=== PATIENT | female | born 1940 | race Caucasian/White ===

== ENCOUNTER 2017-06-05 05:23 | Day surgery (SDC) | payer OTHER, MEDICARE ==
[~2017-06-05] VITALS: Ht 162.6 cm; Wt 53.8 kg
--- NOTE | ~2017-06-05 | O ---
[facility] [place] [address] OPERATIVE REPORT Name: WILBER JUDD Room #: DEP [facility] M.R.#: [id number] Admission: 06/05/17 Attend Phys: Aidee Rolle, Discharge: 06/05/17 Date of : 42 Report #: [id number] THIS REPORT FOR: //name// CC: Guille Rolle DATE OF SERVICE: 06/05/2017 PREOPERATIVE DIAGNOSES: Right long finger, possible osteomyelitis, possible squamous cell carcinoma. POSTOPERATIVE DIAGNOSES: Right long finger, possible osteomyelitis, possible squamous cell carcinoma. PROCEDURE PERFORMED: Right long finger debridement of skin, subcutaneous tissue and bone. SURGEON: Aidee Rolle MD ANESTHESIA: General mask anesthesia. ESTIMATED BLOOD LOSS: Approximately 1 mL. TOURNIQUET TIME: Approximately 16 minutes. COMPLICATIONS: None. CONDITION: Stable. DISPOSITION: To recovery room. 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 The wound continued to not heal and it showed signs of osteomyelitis based on MRI, as well as physical examination. The risks, benefits, alternatives, complications were discussed including but were not limited to infection, inability to resolve the infection necessitating more surgery, damage to blood vessels or nerves, wound healing problems and stiffness and informed consent was obtained. The correct extremity was identified and labeled myself. After verbal confirmation of the patient as well as visual confirmation, signed informed consent was obtained. DESCRIPTION OF PROCEDURE: The patient was brought back to the operating room and placed on the operating room table in supine position. She received antibiotics only after the tourniquet was deflated and cultures were obtained. The right upper extremity was sterilely prepped and draped in usual fashion. A final timeout was taken to verify the correct patient, operative procedure, [address] [address] OPERATIVE REPORT Name: WILBER JUDD LINDSEY Room #: DEP [facility] M.R.#: [id number] Admission: 06/05/17 Attend Phys: Aidee Rolle, Discharge: 06/05/17 Date of : 42 Report #: [id number] operative site, all concurred. An elliptical incision was made over the wound on the radial aspect of the long finger at the distal aspect of the P1. The skin was excised. Dissection was carried down through subcutaneous tissue with tenotomy scissors. A weak cortical area was noted and a curette was placed into the distal aspect of the proximal phalanx. The bone was debrided adequately. The bone appeared to be somewhat soft and this area was debrided to nice, firm, appropriate bone. The area was then thoroughly irrigated with an angiocatheter using 1 mL of antibiotics saline with 14-gauge angiocatheter. Once this was done to satisfaction, the wound was then closed with 4-0 nylon suture. A digital nerve block was done at the base with approximately 3 mL of 0.25% Marcaine. She was placed in a bulky compressive dressing. All fingers were pink with brisk capillary refill at the conclusion of the case. After deflation of the tourniquet, all sponge and needle counts were correct. Of note, the swab and tissue was sent to culture and skin was sent to pathology as well as bone was sent to pathology. <ELECTRONICALLY SIGNED> By: Aidee Rolle MD 06/28/17 1502 [id number] Aidee Rolle MD /nt
--- NOTE | ~2017-06-05 | S ---
[facility] [address] [place] [address] SURGICAL PATH RPT PROCEDURE Name: WILBER JUDD Room #: DEP [facility] M.R.#: [id number] Admission: 06/05/17 Date of : 42 Discharge: 06/05/17 Report #: [id number] Path Case #: [id number] PATHOLOGY REPORT COLLECTION DATE: 06/05/2017 RECEIVED DATE: 06/05/2017 SUBMITTING PHYS: Dr. Aidee Rolle OTHER PHYS: Dr. Guille Cornejo ADDENDUM REPORT (Order Date: 06/27/2017 12:53) ADDENDUM COMMENT: The case is discussed with Dr. Aidee Rolle. 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 Clinical correlation is required. The final diagnosis remains unchanged. (CLW:pit; 06/27/2017) Professional services performed by [facility] at [facility] [address], [place] [address] Technical services performed by [facility] at [address] [place] [address], [address] [place] [address]. ELECTRONICALLY SIGNED BY: Mey Loving M.D. DATE/TIME:06/27/2017 16:20 SPECIMEN(S) RECEIVED: A.Skin, sub-q, tissue and bone right long finger-dx * * * * * * * * * * * * FINAL DIAGNOSIS: "Skin, sub-q, tissue and bone right long finger", debridement: - Skin and subcutaneous tissue with acute and chronic inflammation, granulation tissue and pseudoepitheliomatous hyperplasia. - Decalcified bone and periosteum with focal acute and chronic inflammation and reactive changes. (CLW:pit; 06/06/2017) PATHOLOGIST: Mey Loving M.D. REPORT ELECTRONICALLY SIGNED BY: Mey Loving M.D. DATE/TIME: 06/06/2017 19:51 * * * * * * * * * * * * GROSS PATHOLOGY: [address] [address] SURGICAL PATH RPT PROCEDURE Name: WILBER JUDD Room #: [facility] M..#: [id number] Admission: 06/05/17 Date of : 42 Discharge: 06/05/17 Report #: [id number] Path Case #: [id number] Received in formalin labeled "Wilber Judd and skin, subcutaneous tissue, bone from right long finger," are multiple fragments of skin, soft tissue and bone. The skin ellipse is a disrupted and measure 1.8 x 0.4 x 0.1 cm (inked blue) and serially sectioned into 5 pieces. Also within the container is an irregular fragment of white soft tissue 0.5 x 0.2 x 0.1 cm (inked blue) and several white bone fragments the aggregate measuring 0.3 x 0.1 x 0.1 cm. The specimen is entirely submitted as follows: A1 ellipse, midportion A2 ellipse, tips A3 additional soft tissue A4 bone fragments after decalcification (SWS; 06/05/2017) CLINICAL HISTORY: Squamous cell carcinoma and osteomyelitis INITIAL CPT CODE(S): A; 35035, 70960(2) Professional services performed by [facility] at [facility] [address] [place] [address] Technical services performed by [facility] at [address] [place] [address], [facility] [address] [place] [address]. [facility] [address] [place] [address] PHONE: [phone] DIRECTOR: Dl Heck M.D. * * * END OF REPORT * * *
[2017-06-05 07:42] VITALS: BP 119/59
[2017-06-05] MEDS ORDERED: ASPIR 8181 MG PO ×2 (08:18)
[2017-06-05] MEDS ORDERED: LOPRESSOR50 PO ×2 (08:19)
[2017-06-05] MEDS ORDERED: LIPITOR 20 MG T20 M1 PO ×2 (08:19)
[2017-06-05] MEDS ORDERED: HYDROXYCHLOROQ200 M1 PO ×2 (08:20)
[2017-06-05] MEDS ORDERED: KEFLEX500 M1 PO ×2 (08:22)
[2017-06-05] MEDS ORDERED: VITAMIN D-32000 UNIT PO ×2 (08:22)
[2017-06-05 10:42] VITALS: BP 119/59
[2017-06-06] MEDS ORDERED: INVANZ 1GM/NS 101 GM IV (15:02)
[2017-07-18] MEDS ORDERED: CEFDINIR300 MG PO (10:49)
== END 2017-06-05 11:40 | disposition home or self-care (01) ==
LOC: EDSTATUS 05:23 → OR 05:23 → TBA 05:23 → OR 11:40
DX: M86.8X4 Other osteomyelitis, hand (principal); T81.89XA Other complications of procedures, not elsewhere classified, initial encounter; Z45.2 Encounter for adjustment and management of vascular access device; I10 Essential (primary) hypertension; Z90.710 Acquired absence of both cervix and uterus; Z98.890 Other specified postprocedural states; Z79.82 Long term (current) use of aspirin; Z79.899 Other long term (current) drug therapy
CPT/HCPCS: 50010; 50101; 50386; 56526; 57006; 57091; 62110; 62900; 70005

== ENCOUNTER → 2017-06-06 | Outpatient (CLI) | payer OTHER, MEDICARE ==
[~2017-06-06] MED LIST: ASPIR 8181 MG PO; CEFDINIR300 MG PO; HYDROXYCHLOROQ200 M1 PO; INVANZ 1GM/NS 101 GM IV; KEFLEX500 M1 PO; LIPITOR 20 MG T20 M1 PO; LOPRESSOR50 PO; VITAMIN D-32000 UNIT PO
[2017-06-06 11:55] VITALS: BP 120/52
[2017-06-06 11:59] LABS: HEMATOCRIT 36.1 % (37.0-47.0); HEMOGLOBIN 12.4 gm/dL (12.0-15.0); MCH 34.1 pg (26.0-34.0); MCHC 34.3 g/dL (28.0-37.0); MCV 99.5 fL (80.0-100.0); RBC 3.62 mil/uL (4.20-5.00); RDW 12.6 % (10.5-14.5); WBC 5.1 thou/uL (4.0-11.0)
[2017-06-06 12:12] LABS: ALBUMIN 3.4 g/dL (3.4-5.0); CALCIUM 9.3 mg/dL (8.5-10.1); CREATININE 0.9 mg/dL (0.6-1.0); POTASSIUM 4.5 mmol/L (3.5-5.1); TOTAL BILIRUBIN 0.5 mg/dL (<0.1-1.0); TOTAL PROTEIN 6.4 g/dL (6.4-8.2)
[2017-06-06 12:15] VITALS: BP 120/52
== END ==
LOC: OPONC 06:25
PROVIDERS: Specialist
DX: M86.8X4 Other osteomyelitis, hand (principal)
CPT/HCPCS: 95000

== ENCOUNTER → 2017-06-08 | Outpatient (CLI) | payer OTHER, MEDICARE | LOC: OPONC 08:34 | DX: M86.8X4 Other osteomyelitis, hand (principal) | CPT/HCPCS: 95000 ==

== ENCOUNTER → 2017-06-11 | Outpatient (CLI) | payer OTHER, MEDICARE ==
[2017-06-11 12:13] VITALS: BP 123/52
== END ==
LOC: OPONC 00:21
DX: M86.8X4 Other osteomyelitis, hand (principal)
CPT/HCPCS: 95000

== ENCOUNTER → 2017-06-12 | Outpatient (CLI) | payer OTHER, MEDICARE ==
[2017-06-12 10:30] VITALS: BP 176/59
== END ==
LOC: OPONC 06:23
DX: M86.8X4 Other osteomyelitis, hand (principal)
CPT/HCPCS: 95000

== ENCOUNTER → 2017-06-13 | Outpatient (CLI) | payer OTHER, MEDICARE ==
[2017-06-13 10:29] VITALS: BP 115/32
[2017-06-13 10:51] LABS: HEMATOCRIT 36.2 % (37.0-47.0); HEMOGLOBIN 12.4 gm/dL (12.0-15.0); MCH 33.9 pg (26.0-34.0); MCHC 34.2 g/dL (28.0-37.0); RBC 3.65 mil/uL (4.20-5.00); RDW 12.4 % (10.5-14.5); WBC 4.7 thou/uL (4.0-11.0)
[2017-06-13 11:04] LABS: ALBUMIN 3.2 g/dL (3.4-5.0); CALCIUM 9.1 mg/dL (8.5-10.1); POTASSIUM 4.4 mmol/L (3.5-5.1); TOTAL BILIRUBIN 0.5 mg/dL (<0.1-1.0); TOTAL PROTEIN 6.2 g/dL (6.4-8.2)
== END ==
LOC: OPONC 00:59
PROVIDERS: Specialist
DX: M86.8X4 Other osteomyelitis, hand (principal)
CPT/HCPCS: 95000

== ENCOUNTER → 2017-06-14 | Outpatient (CLI) | payer OTHER, MEDICARE ==
[2017-06-14 10:41] VITALS: BP 132/31
== END ==
LOC: OPONC 01:00
DX: M86.8X4 Other osteomyelitis, hand (principal)
CPT/HCPCS: 95000

== ENCOUNTER → 2017-06-15 | Outpatient (CLI) | payer OTHER, MEDICARE | LOC: OPONC 01:10 | DX: M86.8X4 Other osteomyelitis, hand (principal) | CPT/HCPCS: 95000 ==

== ENCOUNTER → 2017-06-17 | Outpatient (CLI) | payer OTHER, MEDICARE | LOC: OPONC 00:14 | DX: M86.8X4 Other osteomyelitis, hand (principal) | CPT/HCPCS: 95000 ==

== ENCOUNTER → 2017-06-18 | Outpatient (CLI) | payer OTHER, MEDICARE ==
[2017-06-18 13:14] VITALS: BP 130/36
== END ==
LOC: OPONC 00:39
DX: M86.8X4 Other osteomyelitis, hand (principal)
CPT/HCPCS: 95000

== ENCOUNTER → 2017-06-19 | Outpatient (CLI) | payer OTHER, MEDICARE ==
[2017-06-19 10:27] VITALS: BP 130/40
== END ==
LOC: OPONC 07:05
DX: M86.8X4 Other osteomyelitis, hand (principal)
CPT/HCPCS: 95000

== ENCOUNTER → 2017-06-20 | Outpatient (CLI) | payer OTHER, MEDICARE ==
[2017-06-20 10:40] VITALS: BP 140/50
[2017-06-20 10:55] LABS: HEMATOCRIT 34.8 % (37.0-47.0); MCH 33.9 pg (26.0-34.0); MCHC 34.5 g/dL (28.0-37.0); MCV 98.4 fL (80.0-100.0); RBC 3.53 mil/uL (4.20-5.00); RDW 12.3 % (10.5-14.5); WBC 5.4 thou/uL (4.0-11.0)
[2017-06-20 11:08] LABS: ALBUMIN 3.5 g/dL (3.4-5.0); TOTAL BILIRUBIN 0.8 mg/dL (<0.1-1.0); TOTAL PROTEIN 6.3 g/dL (6.4-8.2)
== END ==
LOC: OPONC 00:58
PROVIDERS: Specialist
DX: M86.8X4 Other osteomyelitis, hand (principal)
CPT/HCPCS: 95000

== ENCOUNTER → 2017-06-21 | Outpatient (CLI) | payer OTHER, MEDICARE ==
[2017-06-21 10:10] VITALS: BP 141/37
== END ==
LOC: OPONC 00:41
DX: M86.8X4 Other osteomyelitis, hand (principal)
CPT/HCPCS: 95000

== ENCOUNTER → 2017-06-22 | Outpatient (CLI) | payer OTHER, MEDICARE ==
[2017-06-22 10:23] VITALS: BP 119/41
== END ==
LOC: OPONC 00:34
DX: M86.8X4 Other osteomyelitis, hand (principal)
CPT/HCPCS: 95000

== ENCOUNTER → 2017-06-23 | Outpatient (CLI) | payer OTHER, MEDICARE | LOC: OPONC 06:28 | DX: M86.8X4 Other osteomyelitis, hand (principal) | CPT/HCPCS: 95000 ==

== ENCOUNTER → 2017-06-24 | Outpatient (CLI) | payer OTHER, MEDICARE | LOC: OPONC 06:57 | DX: M86.8X4 Other osteomyelitis, hand (principal) | CPT/HCPCS: 95000 ==

== ENCOUNTER → 2017-06-25 | Outpatient (CLI) | payer OTHER, MEDICARE ==
[2017-06-25 10:10] VITALS: BP 132/46
== END ==
LOC: OPONC 03:01
DX: M86.8X4 Other osteomyelitis, hand (principal)
CPT/HCPCS: 95000

== ENCOUNTER → 2017-06-26 | Outpatient (CLI) | payer OTHER, MEDICARE ==
[2017-06-26 10:14] VITALS: BP 123/45
== END ==
LOC: OPONC 00:25
DX: M86.8X4 Other osteomyelitis, hand (principal)
CPT/HCPCS: 95000

== ENCOUNTER → 2017-06-27 | Outpatient (CLI) | payer OTHER, MEDICARE ==
[2017-06-27 10:10] VITALS: BP 154/59
[2017-06-27 10:36] LABS: HEMATOCRIT 34.6 % (37.0-47.0); HEMOGLOBIN 11.9 gm/dL (12.0-15.0); MCH 33.5 pg (26.0-34.0); MCHC 34.3 g/dL (28.0-37.0); MCV 97.8 fL (80.0-100.0); RBC 3.54 mil/uL (4.20-5.00); RDW 12.7 % (10.5-14.5); WBC 4.1 thou/uL (4.0-11.0)
[2017-06-27 10:49] LABS: ALBUMIN 3.4 g/dL (3.4-5.0); CREATININE 0.9 mg/dL (0.6-1.0); POTASSIUM 4.4 mmol/L (3.5-5.1); TOTAL BILIRUBIN 0.5 mg/dL (<0.1-1.0); TOTAL PROTEIN 6.3 g/dL (6.4-8.2)
== END ==
LOC: OPONC 00:33
PROVIDERS: Specialist
DX: M86.8X4 Other osteomyelitis, hand (principal)
CPT/HCPCS: 95000

== ENCOUNTER → 2017-06-28 | Outpatient (CLI) | payer OTHER, MEDICARE ==
[2017-06-28 10:10] VITALS: BP 134/58
== END ==
LOC: OPONC 01:31
DX: M86.8X4 Other osteomyelitis, hand (principal)
CPT/HCPCS: 95000

== ENCOUNTER → 2017-06-29 | Outpatient (CLI) | payer OTHER, MEDICARE ==
[2017-06-29 11:45] VITALS: BP 111/45
== END ==
LOC: OPONC 01:31
DX: M86.8X4 Other osteomyelitis, hand (principal)
CPT/HCPCS: 95000

== ENCOUNTER → 2017-06-30 | Outpatient (CLI) | payer OTHER, MEDICARE | LOC: OPONC 02:03 | DX: M86.8X4 Other osteomyelitis, hand (principal) | CPT/HCPCS: 95000 ==

== ENCOUNTER → 2017-07-02 | Outpatient (CLI) | payer OTHER, MEDICARE ==
[2017-07-02 11:00] VITALS: BP 115/46
== END ==
LOC: OPONC 00:24
DX: M86.8X4 Other osteomyelitis, hand (principal)
CPT/HCPCS: 95000

== ENCOUNTER → 2017-07-03 | Outpatient (CLI) | payer OTHER, MEDICARE ==
[2017-07-03 10:23] VITALS: BP 111/51
== END ==
LOC: OPONC 00:14
DX: M86.8X4 Other osteomyelitis, hand (principal)
CPT/HCPCS: 95000

== ENCOUNTER → 2017-07-04 | Outpatient (CLI) | payer OTHER, MEDICARE ==
[2017-07-04 10:15] VITALS: BP 133/56
[2017-07-04 10:46] LABS: HEMATOCRIT 34.9 % (37.0-47.0); HEMOGLOBIN 11.9 gm/dL (12.0-15.0); MCH 33.7 pg (26.0-34.0); MCHC 34.1 g/dL (28.0-37.0); MCV 98.8 fL (80.0-100.0); RBC 3.53 mil/uL (4.20-5.00); RDW 12.6 % (10.5-14.5); WBC 4.7 thou/uL (4.0-11.0)
[2017-07-04 10:58] LABS: ALBUMIN 3.4 g/dL (3.4-5.0); CALCIUM 8.9 mg/dL (8.5-10.1); POTASSIUM 4.6 mmol/L (3.5-5.1); TOTAL BILIRUBIN 0.4 mg/dL (<0.1-1.0); TOTAL PROTEIN 6.1 g/dL (6.4-8.2)
== END ==
LOC: OPONC 00:14
PROVIDERS: Specialist
DX: M86.8X4 Other osteomyelitis, hand (principal)
CPT/HCPCS: 95000

== ENCOUNTER → 2017-07-05 | Outpatient (CLI) | payer OTHER, MEDICARE ==
[2017-07-05 12:19] VITALS: BP 145/47
== END ==
LOC: OPONC 00:18
DX: M86.8X4 Other osteomyelitis, hand (principal)
CPT/HCPCS: 95000

== ENCOUNTER → 2017-07-06 | Outpatient (CLI) | payer OTHER, MEDICARE ==
[2017-07-06 10:15] VITALS: BP 121/55
== END ==
LOC: OPONC 00:18
DX: M86.8X4 Other osteomyelitis, hand (principal)
CPT/HCPCS: 95000

== ENCOUNTER → 2017-07-09 | Outpatient (CLI) | payer OTHER, MEDICARE ==
[2017-07-09 13:56] VITALS: BP 122/34
== END ==
LOC: OPONC 00:19
DX: M86.8X4 Other osteomyelitis, hand (principal)
CPT/HCPCS: 95000

== ENCOUNTER → 2017-07-10 | Outpatient (CLI) | payer OTHER, MEDICARE ==
[2017-07-10 10:15] VITALS: BP 150/44
== END ==
LOC: OPONC 00:42
DX: M86.8X4 Other osteomyelitis, hand (principal)
CPT/HCPCS: 95000

== ENCOUNTER → 2017-07-11 | Outpatient (CLI) | payer OTHER, MEDICARE ==
[2017-07-11 10:28] VITALS: BP 147/42
[2017-07-11 10:31] LABS: HEMATOCRIT 35.7 % (37.0-47.0); HEMOGLOBIN 12.3 gm/dL (12.0-15.0); MCH 33.8 pg (26.0-34.0); MCHC 34.5 g/dL (28.0-37.0); MCV 97.8 fL (80.0-100.0); RBC 3.65 mil/uL (4.20-5.00); RDW 12.3 % (10.5-14.5); WBC 3.7 thou/uL (4.0-11.0)
[2017-07-11 10:46] LABS: ALBUMIN 3.5 g/dL (3.4-5.0); CALCIUM 8.9 mg/dL (8.5-10.1); POTASSIUM 4.3 mmol/L (3.5-5.1); TOTAL BILIRUBIN 0.6 mg/dL (<0.1-1.0); TOTAL PROTEIN 6.2 g/dL (6.4-8.2)
== END ==
LOC: OPONC 02:04
PROVIDERS: Specialist
DX: M86.8X4 Other osteomyelitis, hand (principal)
CPT/HCPCS: 95000

== ENCOUNTER → 2017-07-12 | Outpatient (CLI) | payer OTHER, MEDICARE ==
[2017-07-12 10:30] VITALS: BP 142/43
== END ==
LOC: OPONC 00:24
DX: M86.8X4 Other osteomyelitis, hand (principal)
CPT/HCPCS: 95000

== ENCOUNTER → 2017-07-13 | Outpatient (CLI) | payer OTHER, MEDICARE ==
[2017-07-13 18:14] VITALS: BP 118/38
== END ==
LOC: OPONC 00:24
DX: M86.8X4 Other osteomyelitis, hand (principal)
CPT/HCPCS: 95000

== ENCOUNTER → 2017-07-14 | Outpatient (CLI) | payer OTHER, MEDICARE | LOC: OPONC 00:32 | DX: M86.8X4 Other osteomyelitis, hand (principal) | CPT/HCPCS: 95000 ==

== ENCOUNTER → 2017-07-15 | Outpatient (CLI) | payer OTHER, MEDICARE | LOC: OPONC 00:32 | DX: M86.8X4 Other osteomyelitis, hand (principal) | CPT/HCPCS: 95000 ==

== ENCOUNTER → 2017-07-16 | Outpatient (CLI) | payer OTHER, MEDICARE ==
[2017-07-16 10:24] VITALS: BP 138/42
== END ==
LOC: OPONC 00:32
DX: M86.8X4 Other osteomyelitis, hand (principal)
CPT/HCPCS: 95000

== ENCOUNTER → 2017-07-17 | Outpatient (CLI) | payer OTHER, MEDICARE ==
[2017-07-17 10:40] VITALS: BP 129/46
[2017-07-17 11:22] LABS: HEMOGLOBIN 12.2 gm/dL (12.0-15.0); MCH 33.7 pg (26.0-34.0); MCHC 34.7 g/dL (28.0-37.0); MCV 96.9 fL (80.0-100.0); RBC 3.61 mil/uL (4.20-5.00); RDW 12.8 % (10.5-14.5); WBC 4.1 thou/uL (4.0-11.0)
[2017-07-17 11:32] LABS: ALBUMIN 3.4 g/dL (3.4-5.0); CREATININE 0.9 mg/dL (0.6-1.0); POTASSIUM 4.7 mmol/L (3.5-5.1); TOTAL BILIRUBIN 0.5 mg/dL (<0.1-1.0); TOTAL PROTEIN 6.3 g/dL (6.4-8.2)
== END ==
LOC: OPONC 00:32
PROVIDERS: Specialist
DX: M86.8X4 Other osteomyelitis, hand (principal)
CPT/HCPCS: 95000

== ENCOUNTER → 2017-07-18 | Outpatient (CLI) | payer OTHER, MEDICARE ==
[2017-07-18 10:25] VITALS: BP 134/49
== END ==
LOC: OPONC 00:46
DX: M86.8X4 Other osteomyelitis, hand (principal)
CPT/HCPCS: 95000